=== PATIENT | female | born 2000 | race Caucasian/White ===

== ENCOUNTER 2018-11-13 11:03 | Emergency (ER) | payer MEDICAID ==
[2018-11-13 11:16] VITALS: BMI 17.3
[2018-11-13 11:18] VITALS: BP 106/75; PULSE 98; RESP 16; TEMP 98.7; O2SAT 98
--- NOTE | 2018-11-13 11:44 | ED PDOC ---
History of Present Illness History of Present Illness: tactile fever, bodyaches and vomitted yesterday. HPI: Influenza Time Seen by Provider: 11/13/18 11:16 Chief Complaint: Flu-like Symptoms Additional complaint(s):: 18 yo female, no PMH, presents to ED with complaint sof 3 days of nasal congestion, cough and fever. (+) body aches and pains. Nause and post tussive vomiting last night. No diarrhea. No neck pain or photophobia Past Medical History Reviewed: Nursing Documentation, Vital Signs Vital Signs: Last Vital Signs Temp 98.7 F 11/13/18 11:16 Pulse 98 H 11/13/18 11:16 Resp 16 11/13/18 11:16 BP 106/75 11/13/18 11:16 Pulse Ox 98 11/13/18 11:16 - Medical History PMH: No Chronic Diseases - Surgical History Surgical History: No Surg Hx - Family History Family History: States: No Known Family Hx - Living Arrangements Living Arrangements: With Family - Home Medications Home Medications: Ambulatory Orders Medication Instructions Recorded Azithromycin [Zithromax] 500 mg PO DAILY #6 tab 11/13/18 Ibuprofen [Motrin] 600 mg PO Q6 #20 tab 11/13/18 Oseltamivir Cap [Tamiflu] 75 mg PO BID 5 Days cap 11/13/18 - Allergies Allergies/Adverse Reactions: Allergies Allergy/AdvReac Type Severity Reaction Status Date / Time No Known Allergies Allergy Verified 11/13/18 11:31 Review of Systems ROS Statement: Except As Marked, All Systems Reviewed And Found Negative Constitutional: Positive for: Fever ENT: Positive for: Nose Congestion Respiratory: Positive for: Cough Physical Exam - Reviewed Nursing Documentation Reviewed: Yes Vital Signs Reviewed: Yes - Physical Exam Appears: Positive for: Well, Non-toxic, No Acute Distress Head Exam: Positive for: ATRAUMATIC, NORMAL INSPECTION, NORMOCEPHALIC Skin: Positive for: Normal Color, Warm, DRY Eye Exam: Positive for: EOMI, Normal appearance, PERRL ENT: Positive for: Normal ENT Inspection Neck: Positive for: Normal, Painless ROM Cardiovascular/Chest: Positive for: Regular Rate, Rhythm Respiratory: Positive for: CNT, Normal Breath Sounds Gastrointestinal/Abdominal: Positive for: Normal Exam, Soft Back: Positive for: Normal Inspection Extremity: Positive for: Normal ROM Neurological/Psych: Positive for: Awake, Alert, Normal Tone Medical Decision Making Medical Decision Making: CXR: NAD, as read by SAMY Flu (-) medicated with Motrin PO for fever flu like illness discussed, as well as common duration an supportive care measures - ECG O2 Sat by Pulse Oximetry: 98 Disposition - Clinical Impression Clinical Impression: Influenza-like symptoms - Patient ED Disposition Is Patient to be Admitted: No - Disposition Disposition: Routine/Home Disposition Time: 14:00 Condition: STABLE Prescriptions: Azithromycin [Zithromax] 500 mg PO DAILY #6 tab Ibuprofen [Motrin] 600 mg PO Q6 #20 tab Oseltamivir Cap [Tamiflu] 75 mg PO BID 5 Days cap Instructions: Viral Syndrome (DC) Forms: [employer] (Amharic), [facility] ED School/Work Excuse
--- NOTE | 2018-11-13 12:52 | RAD ---
Date of service: 11/13/2018 HISTORY: fever and cough COMPARISON: No prior. TECHNIQUE: Chest PA and lateral FINDINGS: LUNGS: No active pulmonary disease. PLEURA: No significant pleural effusion identified. No pneumothorax apparent. CARDIOVASCULAR: No aortic atherosclerotic calcification present. Normal cardiac size. No pulmonary vascular congestion. OSSEOUS STRUCTURES: No significant abnormalities. VISUALIZED UPPER ABDOMEN: Normal. OTHER FINDINGS: None. IMPRESSION: No active disease.
== END 2018-11-13 13:30 | disposition home or self-care (01) ==
LOC: H.ER 11:03
DX: J11.1 Influenza due to unidentified influenza virus with other respiratory manifestations (principal)